=== PATIENT | female | born 1960 | race Caucasian/White ===

== ENCOUNTER 2020-11-19 13:14 | Emergency (ER) | payer SELFPAY ==
[2020-11-19] VITALS (12 sets, daily range): BP systolic 110–192; BP diastolic 63–132; PULSE 61–82; RESP 16–21; TEMP 36.6–36.8; O2SAT 95–100; BMI 28.3
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
--- NOTE | 2020-11-19 14:00 | PC.NURSE ---
Pt to CT.
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
--- NOTE | 2020-11-19 17:35 | PC.NURSE ---
spoke with pt, she is agreeable to pay for brace out of pocket for back brace. Brace rep called back and stated he would be here in approx an hour.
--- NOTE | 2020-11-19 18:13 | PC.NURSE ---
donna bracing at bedside
== END 2020-11-19 19:36 | disposition home or self-care (01) ==
PROVIDERS: Emergency Provider Emergency Medicine
DX: S22.080A Wedge compression fracture of T11-T12 vertebra, initial encounter for closed fracture (principal); X50.3XXA Overexertion from repetitive movements, initial encounter; Y93.52 Activity, horseback riding; Y92.73 Farm field as the place of occurrence of the external cause
CPT/HCPCS: 72128; 72131; 99283